=== PATIENT | male | born 1965 | race Caucasian/White ===

== ENCOUNTER 2024-05-23 06:11 | Day surgery (SDC) | payer OTHER ==
[~2024-05-23] VITALS: Ht 172.7 cm; Wt 97.6 kg
[~2024-05-23 06:11] MED LIST: ALBU18HF12 IH; ASPI-1450 PO; EZET10TA57 PO; FLUT16SP NASAL; FLUT1BLS18 IH; HYDR-4527 PO; LOSA-381 PO; METO25 PO; MONT-35 PO; OMEP20 PO; RIFAX550 PO; ROSU20TA98 PO; TERB250T90 PO; TRAZ-257 PO
[2024-05-23] MEDS ORDERED: SODIUM CHLORIDE 0.9% 1,000 ML ONE (06:17)
[2024-05-23] MEDS: SODIUM CHLORIDE 0.9% 1,000 ML IV ONE (07:10)
[2024-05-23] MEDS ORDERED: FentaNYL CITRATE PF 100 MCG/2 ML VIAL ONE (08:38)
[2024-05-23] MEDS ORDERED: MIDAZOLAM HCL 2 MG/2 ML VIAL ONE (08:39)
[2024-05-23 09:21] VITALS: PULSE 88; RESP 19; O2SAT 97
[2024-05-23] MEDS ORDERED: MethylPREDNISolone SOD SUCC 125 MG/2 ML VIAL ONE (10:21)
[2024-05-23] MEDS: MethylPREDNISolone SOD SUCC 125 MG/2 ML VIAL IVP ONE (10:22)
[2024-05-23] MEDS ORDERED: LIDOCAINE 2% 11 ML JELLY ONE (12:00)
[2024-05-23] MEDS ORDERED: BENZOCAINE 20% 50 MCG/SPRAY 57 GM ONE (12:00)
[2024-05-23] MEDS ORDERED: LIDOCAINE 4% 50 ML SOLUTION ONE (12:00)
== END 2024-05-23 11:50 | disposition home or self-care (01) ==
LOC: SURGERY 06:11
PROVIDERS: ATTEND Internal Medicine Critical Care Medicine
DX: R05.3 Chronic cough (principal); R49.0 Dysphonia; R04.2 Hemoptysis; J38.4 Edema of larynx; B37.0 Candidal stomatitis; I10 Essential (primary) hypertension; J45.909 Unspecified asthma, uncomplicated; Z79.82 Long term (current) use of aspirin; Z79.899 Other long term (current) drug therapy; Z95.818 Presence of other cardiac implants and grafts; Z98.818 Other dental procedure status; Z98.890 Other specified postprocedural states
CPT/HCPCS: 31623; 31624; 71045; 87015; 87070; 87101; 87206; 87220; J2250; J2919; J3010; J7030; Z7610